=== PATIENT | male | born 1975 | race Caucasian/White ===

== ENCOUNTER 2017-03-01 12:00 | Inpatient (IN) | payer OTHER ==
--- NOTE | ~2017-03-01 | DS ---
Unit #: [id number] #: [id number] Patient: [facility]AR [id number] [facility] [address] [place] [address] [id number] MR#: [id number] NAME: SAGRARIO KUMAR. ROOM: P185 Age: 41 Sex: M Admission Date: 03/01/2017 : 1975 Discharge Date: 03/04/2017 Attending Physician: Mayte Gonzales M.D. DISCHARGE SUMMARY IDENTIFYING DATA Mr. Kumar is a 41-year-old single white male who is a resident of [place], [place] and was self-referred to the hospital on a voluntary basis. DISCHARGE DIAGNOSES Psychiatric: Opioid dependence, moderate and acute withdrawals; opioid-induced mood disorder. Medical: None. Stressors: Moderate psychosocial stressors. HISTORY OF PRESENT ILLNESS Please see initial psychiatric evaluation for details. PAST PSYCHIATRIC HISTORY Please see initial psychiatric evaluation for details. PAST MEDICAL HISTORY Please see initial psychiatric evaluation for details. HOSPITAL COURSE The patient was admitted to the adult chemical dependency unit at [facility] talya Moses and was oriented to the hospital environment. Routine p.r.n. medications were initiated, and he was started back on his home medications and medications were adjusted and he was closely monitored. He was taking the medications regularly and was tolerating them fairly well and was able to show a fairly decent therapeutic response with improvement in depression and anxiety and was willing to continue treatment on an outpatient basis. He was denying any suicidal ideations, intent, or plan, and was not seen to be a danger to self or anyone else, and as such, it was decided that he will be discharged home and will continue treatment on an outpatient basis. DISCHARGE MEDICATIONS None. DISCHARGE CONDITION Stable. PROGNOSIS Fair. Dictated by... Unit #: [id number] #: [id number] Patient: SAGRARIO KUMAR Jose Gupta/modl TD: 03/04/2017 07:21 JOB #: [id number] DISCHARGE SUMMARY Page 1 of 1 X Mayte Gonzales MD DISCHARGE SUMMARY
--- NOTE | ~2017-03-01 | PA ---
Unit #: [id number] #: [id number] Patient: SAGRARIO CHRISTENSEN [id number] [facility] [address] [place] [address] [id number] I MR#: [id number] NAME: SAGRARIO CHRISTENSEN ROOM: P185 Age: 41 Sex: M Admission Date: 03/01/2017 : 1975 Date of Assessment: 03/01/2017 Attending Physician: Mayte Gonzales M.D. Admitting Physician: Mayte Gonzales M.D. Primary Care Physician: Generic Doctor Not In System PSYCHIATRIC ASSESSMENT DATE OF SERVICE 03/01/2017. IDENTIFYING DATA Mr. Christensen is a 41-year-old single white male, who is a resident of [place], [place], and was self-referred to the hospital on a voluntary basis. CHIEF COMPLAINT "I failed a drug test at [facility]." HISTORY OF PRESENT ILLNESS Mr. Christensen is a 41-year-old white male with history of substance abuse and dependence, who was self-referred to the hospital stating that he failed a drug test and they told him to come in here for an assessment. He stated that he also wants to get clean and that he has used heroin for 7 or 8 days straight intravenously and that he has not used in weeks before that and he had used heroin in the past 8 years on and off, but has been on a binge for the last week or so. He spent 3 days in [facility] at the end of January and was residing in [place], [place], but came here to participate in rehab at [facility] "it is a working rehab." He reports that he has been having significant withdrawal symptoms including stomach cramps, restlessness, leg shakes, and he used IV heroin last at 3:00 p.m. yesterday and as such, was seen to be in distress and discomfort and recommendation for inpatient level of care for safety and stabilization was made. The patient does report some depression and anxiety, but denies any suicidal ideations, intent, or plan. SUBSTANCE ABUSE HISTORY The patient reports opioids, particularly heroin to be his drug of choice and also has history of alcohol dependence in the past and reports that he used to drink a case of beer a day, but has not had anything since 2006. PAST PSYCHIATRIC HISTORY The patient has had chemical dependency treatment in the past. Review of the medical records indicate currently he is not active in any treatment program, and is not seeing a psychiatrist, and is not taking any psychotropic medications. PAST MEDICAL HISTORY No acute or chronic medical illnesses. ALLERGIES Unit #: [id number] #: [id number] Patient: SAGRARIO CHRISTENSEN No known medication allergies. CURRENT MEDICATIONS None. PERSONAL AND SOCIAL HISTORY A 41-year-old white male, who reports that he is single, unemployed, and lives in a snf house and has poor social support system. MENTAL STATUS EXAMINATION Middle-aged white male who was casually dressed with fair personal hygiene, appears to be in no acute distress or discomfort. He was awake and alert on interaction with intact orientation to time, place, and person. His mood was anxious and depressed with a congruent affect. His speech was slow and restricted in content. His thought processes were disorganized with some looseness of associations. He denies any suicidal or homicidal ideations and also denies any auditory or visual hallucinations. His insight and judgment remain significantly impaired. DIAGNOSTIC IMPRESSION Psychiatric: Opioid dependence, moderate and acute withdrawals; opioid-induced mood disorder. Medical: None. Stressors: Moderate psychosocial stressors. TREATMENT PLAN 1. The patient has presented with history of mood disorder and substance abuse and has been decompensating and will need inpatient hospitalization for detoxification, safety, and stabilization. We will start him back on his home medications. We will adjust the medications and monitor response. 2. Supportive therapy was provided to the patient. 3. Safe, structured, and nourishing environment will be provided. ESTIMATED LENGTH OF STAY 4 to 5 days. ABILITY TO HELP SELF Limited. WILLINGNESS TO HELP SELF The patient appears to be willing to help self. STRENGTHS 1. Communicative. 2. Cooperative. PROBLEMS 1. Chronic dysphoric symptoms. 2. Poor social support system. DISCHARGE CRITERIA This will be contingent upon the patient's ability to show resolution of his depression and anxiety and his ability to stay safe to himself, particularly after discharge from the hospital. Dictated by... Mayte Gonzales M.D. Unit #: [id number] #: [id number] Patient: SAGRARIO CHRISTENSEN IAA/modl TD: 03/02/2017 06:30 JOB #: [id number] PSYCHIATRIC ASSESSMENT Page 1 of 1 X Mayte Gonzales MD PSYCHIATRIC ASSESSMENT
--- NOTE | ~2017-03-01 | PN ---
Unit #: [id number] #: [id number] Patient: SAGRARIO CHRISTENSEN [id number] [facility] [address] [place] [address] [id number] I MR#: [id number] NAME: SAGRARIO CHRISTENSEN. ROOM: P185 Age: 41 Sex: M Admission Date: 03/01/2017 : 1975 Attending Physician: Mayte Gonzales M.D. Admitting Physician: Mayte Gonzales M.D. Primary Care Physician: Elba Doctor Not In System [facility] PROGRESS NOTES DATE 03/02/2017 DISCUSSION Mr. Christensen is a 41-year-old, white male who was seen today and chart was reviewed and case was discussed with the staff. He has been anxious, withdrawn and rather seclusive to himself. Meanwhile, he has been cooperative with treatment recommendations and has been taking medication and tolerating them fairly well with no reported side effects. MENTAL STATUS EXAM Middle-aged white male who was casually dressed with fair personal hygiene, appears to be in no acute distress or discomfort. He was awake and alert on interaction with intact orientation. His mood was anxious with congruent affect. He denies any suicidal or homicidal ideation. His insight and judgement remains slightly impaired. TREATMENT PLAN 1. We will continue him on his current medications and treatment protocol as well as detox medication. We will monitor his response and make further adjustments as needed. 2. We will continue to follow up. Dictated by... Jose Gupta/aj TD: 03/03/2017 00:43 JOB #: [id number] Unit #: [id number] #: [id number] Patient: SAGRARIO CHRISTENSEN [facility] PROGRESS NOTES Page 1 of 1 X Mayte Gonzales MD PROGRESS NOTE
--- NOTE | ~2017-03-01 | HP ---
Unit #: [id number] #: [id number] Patient: SAGRARIO KUMAR [id number] [place] [address] [id number] MR#: [id number] NAME: SAGRARIO KUMAR. ROOM: P185 Age: 41 Sex: M Admission Date: 03/01/2017 : 1975 Attending Physician: Mayte Gonzales M.D. Admitting Physician: Mayte Gonzales M.D. Primary Care Physician: Generic Doctor Not In System HISTORY AND PHYSICAL HISTORY OF PRESENT ILLNESS Sagrario is a 41 year old admitted to [facility] because of his drug use. He shoots heroin. PAST MEDICAL HISTORY Long history of opioid abuse to include IV heroin. PAST SURGICAL HISTORY Inguinal hernia repair. ALLERGIES No known drug allergies. SOCIAL HISTORY Smokes one pack per day. Denies alcohol. Admits to long history of opioid abuse to include IV heroin. FAMILY HISTORY Medically noncontributory. REVIEW OF SYSTEMS CONSTITUTIONAL: No fever or chills. HEENT: Denies any sore throat, ear pain or runny nose. CARDIOVASCULAR: Denies chest pain, irregular heart rhythm or palpitations. CHEST: Denies shortness of breath or cough. No hemoptysis. GASTROINTESTINAL: Denies nausea, vomiting, diarrhea or chronic constipation. ENDOCRINE: Denies history of increased thirst or urination. No recent significant weight loss or gain. GENITOURINARY: Denies dysuria, frequency, or hematuria. SKIN: Denies any rashes. HEMATOLOGIC: Denies history of increased bleeding or bruising. MUSCULOSKELETAL: Denies any hot, swollen joints. No generalized muscle pain. NEUROLOGIC: Denies problems with vision or speech. No frequent, severe headaches. No numbness, tingling or weakness in any extremities. Denies loss of bladder or bowel control. CURRENT MEDICATIONS Detox protocol. PHYSICAL EXAMINATION GENERAL: Alert, well nourished. No apparent distress. Unit #: [id number] #: [id number] Patient: SAGRARIO KUMAR VITAL SIGNS: Blood pressure 110/66, heart rate 100, respirations 16, and temperature 98.6. WEIGHT: 175. HEIGHT: 5 feet 11 inches. SKIN: Warm and dry without rash or lesion. HEENT: Normocephalic. TMs not viewed. Oral and nasal passages clear. Conjunctivae clear. PERRLA. EOMs intact. NECK: Supple without lymphadenopathy or thyromegaly. HEART: Regular rate and rhythm without murmur. LUNGS: Clear. ABDOMEN: Soft, nontender. : Not done. EXTREMITIES: No evidence of cyanosis, clubbing or edema. Moves all without focal deficit. NEUROLOGICAL: Grossly within normal limits. Cranial Nerves: II: Visual morris are intact. III, IV AND : Extraocular movements are intact. Pupils are equal, round and reactive to light. V: Facial sensation is grossly normal. VII: Facial movements and expression are normal. VIII: Auditory acuity grossly intact. IX, X: Uvula is midline. Phonation is normal. XI: Patient shrugs shoulders and turns head normally. XII: Tongue protrudes in the midline. Sensory and Motor Function: Sensory and motor sensation is grossly normal. Motor: moves all extremities well. Coordination: Gait is normal. Deep Tendon Reflexes: Intact. IMPRESSION Psychiatric admission. RECOMMENDATIONS PSYCHIATRIC: Per psychiatrist. MEDICAL: I see no contraindication to participate in this facility's activities. MEDICAL PROGNOSIS Good. MEDICAL CONDITION Stable. Dictated by... Angely Rivero P.A.-C. for Jose Stewart/perlita TD: 03/02/2017 09:43 JOB #: [id number] Unit #: [id number] #: [id number] Patient: SAGRARIO KUMAR HISTORY AND PHYSICAL Page 1 of 1 X Angely Rivero HISTORY AND PHYSICAL
--- NOTE | ~2017-03-01 | PN ---
Unit #: [id number] #: [id number] Patient: SAGRARIO CHRISTENSEN [id number] [facility] [address] [place] [address] [id number] I MR#: [id number] NAME: SAGRARIO CHRISTENSEN. ROOM: P185 Age: 41 Sex: M Admission Date: 03/01/2017 : 1975 Attending Physician: Mayte Gonzales M.D. Admitting Physician: Mayte Gonzales M.D. Primary Care Physician: Elba Doctor Not In System [facility] PROGRESS NOTES DATE 03/03/2017 DISCUSSION Mr. Christensen is a 41-year-old male who was seen today and chart was reviewed and case was discussed with the staff. He has been anxious, withdrawn and seclusive to himself and reports having persistent detox symptoms. Meanwhile, he has been taking medications and tolerating them fairly well with no reported side effects. MENTAL STATUS EXAMINATION Middle-aged male who was casually dressed with fair personal hygiene and appears to be in no acute distress or discomfort. He was awake and alert on interaction with intact orientation. His mood was anxious with congruent affect. He denies any suicidal or homicidal ideation. His insight and judgement remains slightly impaired. TREATMENT PLAN 1. Will continue on his current treatment protocol. Will monitor his response and make further adjustments as needed. 2. Will continue to follow up. Dictated by... Mayte Gonzales M.D. IAA/kelsie TD: 03/03/2017 18:01 JOB #: [id number] Unit #: [id number] #: [id number] Patient: SAGRARIO CHRISTENSEN [facility] PROGRESS NOTES Page 1 of 1 X Mayte Gonzales MD PROGRESS NOTE
[2017-03-03 09:43] LABS: BASOPHIL% 0.9 % (0-2.5); EOSINOPHIL# 0.2 X10e3 (0-0.7); EOSINOPHIL% 5.1 % (0.0-7.0); HEMATOCRIT 40.6 % (38.0-50.0); HEMOGLOBIN 13.7 gm/dL (13.0-16.0); LYMPHOCYTE# 1.3 X10e3 (1.0-3.5); LYMPHOCYTE% 30.1 % (17.0-45.0); MEAN CELL VOLUME 88.9 FL (83-96); MEAN CORPUSCULAR HGB CONC 33.7 g/dL (30-36); MONOCYTE# 0.4 X10e3 (0-1.0); MONOCYTE% 10.1 % (3.0-12.0); NEUTROPHIL# 2.4 X10e3 (1.5-7.1); NEUTROPHIL% 53.8 % (40-75); PLATELET COUNT 123 X10e3 (140-420); RED BLOOD COUNT 4.57 X10e (3.90-5.60); RED CELL DISTRIBUTION WIDTH 13.8 % (11.0-15.5); WHITE BLOOD COUNT 4.4 X10e3 (4.0-10.5)
[2017-03-03 09:58] LABS: DIFF IND NO
[2017-03-03 10:06] LABS: ALBUMIN SERUM 3.2 g/dL (3.5-5.0); BILIRUBIN,TOTAL 0.8 mg/dL (0.2-2.0); CALCIUM SERUM 8.8 mg/dL (8.4-10.2); GLOM FILT RATE Estimated 91.8 mL/min (>60); POTASSIUM 3.9 mmol/L (3.5-5.1); PROTEIN TOTAL SERUM 6.3 g/dL (6.0-8.3)
[2017-03-03 10:24] LABS: URINE APPEARANCE CLOUDY; URINE BILIRUBIN NEG (NEG); URINE BLOOD NEG (NEG); URINE COLOR DK YELLOW; URINE GLUCOSE NEG (NEG); URINE KETONE NEG (NEG); URINE LEUKOCYTE ESTERASE NEG (NEG); URINE NITRATE NEG (NEG); URINE PH 7.5 (5-8); URINE PROTEIN NEG (NEG); URINE SPECIFIC GRAVITY 1.019 (1.003-1.035)
[2017-03-03 11:10] LABS: AMPHETAMINE NEG (NEG); BARBITURATES NEG (NEG); BENZODIAZEPINES NEG (NEG); COCAINE NEG (NEG); MARIJUANA NEG (NEG); OPIATES NEG (NEG); TRICYCLIC ANTIDEPRESSANTS NEG (NEG); U METHADONE NEG (NEG)
== END 2017-03-04 10:30 | DRG 897 ==
LOC: P1E 13:50
PROVIDERS: Psychiatry & Neurology Psychiatry
PROC: HZ2ZZZZ Detoxification Services for Substance Abuse Treatment (ICD-10-PCS; principal; 2017-03-01)
DX: F11.23 Opioid dependence with withdrawal (principal); F11.24 Opioid dependence with opioid-induced mood disorder; F17.210 Nicotine dependence, cigarettes, uncomplicated
CPT/HCPCS: 80053; 80307; 81003; 85025; 86592